=== PATIENT | female | born 1990 | race Caucasian/White ===

== ENCOUNTER → 2022-08-26 23:14 | Outpatient (CLI) | payer OTHER, MEDICAID, SELFPAY ==
[2022-08-26 17:56] LABS: Basophils % 0.4 % (0.1-2.0); Eosinophils # 0.1 K/mm3 (0.0-0.4); Eosinophils % 1.3 % (0.1-12.0); Hematocrit 43.3 % (37.0-47.0); Hemoglobin 13.6 g/dL (12.2-16.2); Lymphocytes # 1.1 K/mm3 (0.7-4.5); Mean Corpuscular HGB Conc 31.5 g/dL (31.8-35.4); Mean Corpuscular Hemoglobin 29.1 pg (27.0-31.2); Mean Corpuscular Volume 92.5 fl (81-99); Mean Platelet Volume 9.5 fl (7.4-10.4); Monocytes # 0.4 K/mm3 (0.1-1.0); Monocytes % 5.6 % (1.7-9.3); Neutrophils % 75.6 % (37.0-80.0); Platelet Count 234 K/mm3 (142-424); Red Blood Count 4.68 M/mm3 (4.20-5.40); Red Cell Distribution Width 13.2 % (11.5-17.5); White Blood Count 6.5 K/mm3 (4.8-10.8)
[2022-08-26 17:59] LABS: Alanine Aminotransferase 17 U/L (12-78); Albumin Level 4.3 g/dl (3.5-5.0); Albumin/Globulin Ratio 1.5 (1.1-1.8); Alkaline Phosphatase 71 U/L (38-126); Anion Gap 14.7 mEq/L (5-15); Aspartate Amino Transferase 24 U/L (14-36); Bilirubin,Total 0.9 mg/dl (0.2-1.3); Blood Urea Nitrogen 10 mg/dl (7-17); Calcium 8.6 mg/dl (8.4-10.2); Carbon Dioxide 27 mmol/L (22.0-30.0); Chloride 103 mmol/L (98-107); Estimated Glomerular Filt Rate 118 ml/min (>60); GFR (African American) 143 ML/MIN (>60); Globulin 2.9 g/dL (1.3-3.2); Glucose 91 mg/dl (74-100); Potassium 3.7 mmoL/L (3.5-5.1); Sodium 141 mmol/L (136-145); Total Protein,Serum 7.2 g/dl (6.3-8.2)
[2022-08-26 18:16] LABS: Free T4 (Free Thyroxine) 1.12 ng/dl (0.78-2.19)
[2022-08-26 18:17] LABS: 25-OH Vitamin D, Total 45.2 ng/mL (30-100)
[2022-08-26 18:19] LABS: Hemoglobin A1C 4.8 % (4.0-6.0)
[2022-08-26 18:30] LABS: Thyroid Stimulating Hormone 9.87 uIU/mL (0.465-4.68)
[2022-08-26 18:49] LABS: Vitamin B12 695 pg/mL (239-931)
== END ==
PROVIDERS: PCP Nurse Practitioner; Visit Provider Nurse Practitioner
DX: E03.9 Hypothyroidism, unspecified (principal); F32.A Depression, unspecified; K21.9 Gastro-esophageal reflux disease without esophagitis; R53.83 Other fatigue
CPT/HCPCS: 80053; 82306; 82607; 83036; 84439; 84443; 85025

== ENCOUNTER → 2022-10-06 23:58 | Outpatient (CLI) | payer OTHER, MEDICAID, SELFPAY ==
[2022-10-06 19:17] LABS: Thyroid Stimulating Hormone 4.07 uIU/mL (0.465-4.68)
== END ==
PROVIDERS: PCP Family Medicine; Visit Provider Family Medicine
DX: E03.9 Hypothyroidism, unspecified (principal)
CPT/HCPCS: 84443

== ENCOUNTER → 2023-02-27 09:41 | Outpatient (CLI) | payer MEDICAID, SELFPAY | PROVIDERS: PCP Family Medicine; Visit Provider Nurse Practitioner Family | DX: G47.10 Hypersomnia, unspecified (principal); R41.3 Other amnesia; R55 Syncope and collapse; R00.2 Palpitations; F39 Unspecified mood [affective] disorder; S09.90XA Unspecified injury of head, initial encounter | CPT/HCPCS: 94762; 95819 ==

== ENCOUNTER 2023-03-17 14:16 | Outpatient (CLI) | payer MEDICAID, SELFPAY | END 2023-03-17 23:59 | LOC: RT 14:17 | PROVIDERS: PCP Internal Medicine Cardiovascular Disease; Visit Provider Nurse Practitioner Family | DX: G47.10 Hypersomnia, unspecified (principal); R41.3 Other amnesia; R55 Syncope and collapse; R00.2 Palpitations; F39 Unspecified mood [affective] disorder; S09.90XA Unspecified injury of head, initial encounter; Y99.9 Unspecified external cause status | CPT/HCPCS: 94762 ==

== ENCOUNTER 2023-04-02 09:13 | Outpatient (CLI) | payer MEDICAID, SELFPAY ==
--- NOTE | 2023-04-02 09:44 | MR_ITS ---
FINAL REPORT CLINICAL HISTORY: seizures? COMPARISON: None FINDINGS: Multiplanar MR imaging of the brain was performed without and with contrast. There is no evidence of intracranial hemorrhage or mass. No abnormal extra-axial fluid collection is seen. The ventricular size is within normal limits. There is no evidence of shift of the midline structures. The posterior fossa and brainstem have an unremarkable appearance. No area of abnormal restricted diffusion is identified. No abnormal contrast enhancement is seen. Normal major vessel vascular flow voids are noted. IMPRESSION: No acute intracranial abnormality identified. Reviewed, Interpreted and Dictated by Germain Jernigan III, MD Transcribed by Ruchi Leiva Authenticated and [facility]
[2023-04-02] MEDS: GADOTERIDOL INJ 17ML SYRINGE 10 ML IV (10:40)
[2023-04-02] MEDS: SODIUM CHLORIDE 0.9% 10ML SYR (RAD ONLY) 10 ML IV (10:41)
== END 2023-04-02 23:59 ==
LOC: RAD 09:13
PROVIDERS: PCP Family Medicine; Visit Provider Nurse Practitioner Family
DX: R55 Syncope and collapse (principal); R41.3 Other amnesia; F39 Unspecified mood [affective] disorder; G47.10 Hypersomnia, unspecified; R00.2 Palpitations; S09.90XA Unspecified injury of head, initial encounter
CPT/HCPCS: 70553; 94762; A9576

== ENCOUNTER 2023-04-09 12:57 | Outpatient (CLI) | payer MEDICAID, SELFPAY ==
[2023-04-09 13:32] LABS: Basophils # 0.1 K/mm3 (0-0.2); Basophils % 0.8 % (0.1-2.0); Eosinophils # 0.1 K/mm3 (0.0-0.4); Hematocrit 41.3 % (37.0-47.0); Hemoglobin 13.9 g/dL (12.2-16.2); Lymphocytes # 1.7 K/mm3 (0.7-4.5); Lymphocytes % 28.6 % (10-50); Mean Corpuscular HGB Conc 33.7 g/dL (31.8-35.4); Mean Corpuscular Hemoglobin 30.1 pg (27.0-31.2); Mean Corpuscular Volume 89.3 fl (81-99); Mean Platelet Volume 8.9 fl (7.4-10.4); Monocytes # 0.3 K/mm3 (0.1-1.0); Monocytes % 4.9 % (1.7-9.3); Neutrophils # 3.8 K/mm3 (1.8-7.8); Neutrophils % 63.8 % (37.0-80.0); Platelet Count 223 K/mm3 (142-424); Red Blood Count 4.63 M/mm3 (4.20-5.40); Red Cell Distribution Width 14.3 % (11.5-17.5); White Blood Count 5.9 K/mm3 (4.8-10.8)
[2023-04-09 13:58] LABS: Chloride 102 mmol/L (98-107); Potassium 3.7 mmoL/L (3.5-5.1); Sodium 139 mmol/L (136-145)
[2023-04-09 14:01] LABS: Alanine Aminotransferase 54 U/L (12-78); Albumin Level 4.1 g/dl (3.5-5.0); Albumin/Globulin Ratio 1.4 (1.1-1.8); Alkaline Phosphatase 71 U/L (38-126); Anion Gap 11.7 mEq/L (5-15); Aspartate Amino Transferase 26 U/L (14-36); Bilirubin,Total 1.2 mg/dl (0.2-1.3); Blood Urea Nitrogen 10 mg/dl (7-17); Carbon Dioxide 29 mmol/L (22.0-30.0); Estimated Glomerular Filt Rate 98 ml/min (>60); GFR (African American) 119 ML/MIN (>60); Globulin 2.9 g/dL (1.3-3.2)
[2023-04-09 14:02] LABS: Calcium 8.8 mg/dl (8.4-10.2); Glucose 86 mg/dl (74-100)
[2023-04-09 14:12] LABS: C-Reactive Protein 1.2 mg/L (0-4)
[2023-04-09 14:32] LABS: Thyroid Stimulating Hormone 3.71 uIU/mL (0.465-4.68)
[2023-04-09 14:51] LABS: Vitamin B12 888 pg/mL (239-931)
[2023-04-09 15:08] LABS: Folate 9.45 ng/mL
[2023-04-09 16:00] LABS: Erythrocyte Sedimentation Rate 11 mm/hr (0-20)
[2023-04-10 11:36] LABS: Rapid Plasma Reagin Ab Titer Non Reactive titer (NonRea<1:1)
[2023-04-12 10:30] LABS: Antinuclear Antibodies (ANA) Negative
== END 2023-04-09 23:59 ==
LOC: LAB 12:57
PROVIDERS: PCP Family Medicine; Visit Provider Nurse Practitioner Family
DX: F39 Unspecified mood [affective] disorder (principal); R55 Syncope and collapse; R00.2 Palpitations; R41.3 Other amnesia; G47.10 Hypersomnia, unspecified; S09.90XA Unspecified injury of head, initial encounter
CPT/HCPCS: 36415; 80053; 82607; 82746; 84443; 85025; 85651; 86038; 86140; 86225; 86235; 86593; 93270